=== PATIENT | female | born 1980 | race Two or more races ===

== ENCOUNTER 2017-06-07 07:34 | Day surgery (SDC) | payer MEDICARE ==
--- NOTE | ~2017-06-07 | OP ---
PATIENT NAME: CARY CALVILLO MEDICAL RECORD: [id number] :80 LOCATION:[facility] ADMISSION DATE: SURGEON: DANN AGUILAR MD DATE OF OPERATION: 06/07/2017 PREOPERATIVE DIAGNOSES: 1. Internal hemorrhoids. 2. Anal skin tag. POSTOPERATIVE DIAGNOSES: 1. Internal hemorrhoids. 2. Anal skin tag. PROCEDURE: Excision of right anterior hemorrhoid and anal skin tag. SURGEON: Dann Aguilar MD REPORT OF PROCEDURE: The patient's perianal region was prepped and draped in sterile fashion. An anoscope was inserted and a 360 degree inspection was performed. The patient had a large internal hemorrhoid. There was pedunculated in the right anterior region. This extended up to a large anal skin tag at about the 10 o'clock to 12 o'clock position. The remainder of the anoscope showed no sign of any large hemorrhoids with only some smaller hemorrhoids present at the anal verge. We placed a chromic in a [id number] fashion at the base of the hemorrhoid and tied this down tightly. The hemorrhoid was then excised with care taken not to injure the patient's sphincteric musculature. Once the hemorrhoid was completely excised, we checked the area and any bleeding that was found was treated with electrocautery. We then ran the 2-0 chromic from inside the rectum out to the anoderm in a locking fashion. There was good approximation of the tissue and there was no sign of any active bleeding at conclusion of the case. A piece of Gelfoam with Americaine was then inserted into the anus. COMPLICATIONS: None. CONDITION: Stable. ANESTHESIA: General endotracheal. BLOOD LOSS: 50 mL. TRANSINT:[id number] Voice Confirmation ID: [id number] DOCUMENT ID: [id number] CC: ASIF Da Silva CHRISTIAN MD at 1319 CC: [id number] DICTATION DATE: 06/07/17 1140 HOSPICE PHYSICIAN: 06/07/17 1230 [facility] 06/07/17 [facility] [address] [place] [address]
[2017-06-07 08:04] LABS: HCG URINE NEGATIVE (NEGATIVE)
[2017-06-07 08:11] LABS: CALC OSMOLALITY 273 mosm/kg (275-300); CALCIUM 8.7 mg/dL (8.5-10.1); CHLORIDE - SERUM 101 mmol/L (98-107); CREATININE - SERUM 0.8 mg/dL (0.6-1.3); GLUCOSE 102 mg/dL (74-106); POTASSIUM - SERUM 3.6 mmol/L (3.5-5.1); SODIUM 137 mmol/L (136-145); UREA NITROGEN 12 mg/dL (7-18); eGFR NON AFRICAN AMERICAN 85 mL/min (90-120)
[2017-06-07 08:12] LABS: BASOPHILS 1.1 % (0-2); EOSINOPHILS 2.9 % (0-7); HEMATOCRIT 40.5 % (36.0-48.0); HEMOGLOBIN 13.4 g/dL (12-16); IMMATURE GRANULOCYTES 0.1 % (0-5); LYMPHOCYTES 36.2 % (15-50); MCH 29.8 pg (26.0-34.0); MCHC 33.1 g/dL (31.0-37.0); MEAN PLATELET VOLUME 8.7 fL (7.4-10.4); MONOCYTES 9.2 % (2-11); NEUTROPHILS 50.5 % (40-80); PLATELET COUNT 360 10x3/uL (130-400); RDW 13.6 % (11.5-14.5); WBC 8.2 10x3/uL (4.8-10.8)
[2017-06-07 08:15] VITALS: BP 119/63; BMI 30.5
[2017-06-07] MEDS ORDERED: HYDROCODONE-APA1 TAB PO (11:36)
== END 2017-06-07 14:54 | disposition home or self-care (01) ==
LOC: D.OPS 07:34
PROVIDERS: Surgery
DX: K64.8 Other hemorrhoids (principal); K64.4 Residual hemorrhoidal skin tags; Z01.812 Encounter for preprocedural laboratory examination